=== PATIENT | female | born 1950 | race Caucasian/White ===

== ENCOUNTER → 2017-11-20 | Outpatient (CLI) | payer MEDICARE, OTHER | END | disposition home or self-care (01) | LOC: CFH 10:54 | PROVIDERS: ATTEND Emergency Medicine | DX: Z12.2 Encounter for screening for malignant neoplasm of respiratory organs (principal); R91.1 Solitary pulmonary nodule; Z71.6 Tobacco abuse counseling; Z72.0 Tobacco use | CPT/HCPCS: G0297 ==

== ENCOUNTER → 2017-11-28 | Outpatient (CLI) | payer MEDICARE, OTHER | END | disposition home or self-care (01) | LOC: CFH 09:09 | PROVIDERS: ATTEND Emergency Medicine | DX: I35.8 Other nonrheumatic aortic valve disorders (principal); E11.9 Type 2 diabetes mellitus without complications; F17.210 Nicotine dependence, cigarettes, uncomplicated | CPT/HCPCS: 93306 ==

== ENCOUNTER 2018-10-15 08:30 | Inpatient (IN) | payer MEDICARE ==
[2018-10-13 15:51] LABS: ALBUMIN 3.7 g/dL (3.4-5.0); ANION GAP 10 mmol/L (5-15); CALCIUM 9.3 mg/dL (8.5-10.1); CHLORIDE 92 mmol/L (98-107)
[2018-10-13 15:55] LABS: ALANINE AMINOTRANSFERASE 20 U/L (12-78); ALKALINE PHOSPHATASE 121 U/L (45-117); BILIRUBIN,TOTAL 0.6 mg/dL (0.2-1.0); CREATININE 0.55 mg/dL (0.55-1.02); TOTAL PROTEIN 7.3 g/dL (6.4-8.2)
[~2018-10-15] VITALS: Ht 162.6 cm; Wt 73.1 kg
[2018-10-15 06:48] VITALS: BP 119/74
[~2018-10-15 08:30] MED LIST: ACETAMINOPHEN 500 MG TABLET PO ONE; ATOR40TA78 PO; BUPIVACAINE/PF-EPI 0.5% 1:200K ONE; CEFAZOLIN 1,000 MG ONE; DEXAMETHASONE 4 MG/ML, 1ML ONE; FENTANYL PF 100 MCG/2ML IV PRN; FENTANYL PF 250 MCG/5ML ONE; GABAPENTIN 300 MG CAPSULE PO ONE; GLYCOPYRROLATE 0.2MG/1ML, 5ML ONE; HYDR-3237 PO; HYDROmorphone 2 MG/ML, 1ML IVPush PRN; LABETALOL 5MG/ML, 20ML IV PRN; LACTATED RINGERS 1,000 ML IV SCH; LISI2.5T PO; MEPERIDINE/PF 25MG/0.5ML IVPush PRN; METF1000 PO; MIDAZOLAM 1 MG/ML, 2ML ONE; MORPHINE SULFATE 4 MG/ML, 1ML IVPush PRN; NEOSTIGMINE 1 MG/ML, 10ML ONE; ONDANSETRON 2MG/ML, 2ML IV PRN; ONDANSETRON 2MG/ML, 2ML ONE; ONDANSETRON ODT 8 MG PO PRN; OXYcodone 5 MG/5 ML ORAL.SOL UDC PO PRN; PROMETHAZINE 12.5 MG SUPP PR PRN; PROMETHAZINE 25 MG SUPP PR PRN; PROMETHAZINE 25 MG/ML, 1ML IM PRN; PROMETHAZINE 25 MG/ML, 1ML IV PRN; PROPOFOL 10 MG/ML, 20ML ONE; ROCURONIUM 10MG/ML,5ML ONE; hydrALAzine 20 MG/ML, 1ML IV PRN
[2018-10-15] MEDS: SODIUM CHLORIDE 0.9% 1,000 ML IV SCH (10:59)
[2018-10-15] MEDS: INSULIN LISPRO 100 UNITS/ML, PEN SQ-INSULIN SCH ×3 (11:00→20:29)
[2018-10-15] MEDS ORDERED: LABETALOL 5 MG/ML SYRINGE IVPush PRN (11:00)
[2018-10-15] MEDS ORDERED: CYCLOBENZAPRINE 10 MG TABLET PO PRN (11:00)
[2018-10-15] MEDS ORDERED: ENOXAPARIN 40 MG/0.4 ML SQ SCH (11:00)
[2018-10-15] MEDS ORDERED: hydrALAzine 20 MG/ML, 1ML IVPush PRN (11:00)
[2018-10-15] MEDS ORDERED: ONDANSETRON ODT 4 MG PO PRN (11:00)
[2018-10-15] MEDS ORDERED: ONDANSETRON 2MG/ML, 2ML IVPush PRN (11:00)
[2018-10-15] MEDS ORDERED: ACETAMINOPHEN 325 MG TABLET PO PRN (11:00)
[2018-10-15] MEDS: NICOTINE 7 MG/24 HR PATCH.TD24 TD SCH (11:10)
[2018-10-15] MEDS: HYDROcodone/APAP 5/325 TABLET PO PRN ×2 (11:18→19:46)
[2018-10-15 12:10] LABS: BASOPHILS # (AUTO) 0.03 x10^3/uL (0-0.1); BASOPHILS % (AUTO) 0 % (0-1); EOSINOPHILS # (AUTO) 0.04 x10^3/uL (0-0.4); EOSINOPHILS % (AUTO) 1 % (1-7); LYMPHOCYTES # (AUTO) 1.55 x10^3/uL (1-3.4); LYMPHOCYTES % (AUTO) 21 % (22-44); MD NO; MEAN CORPUSCULAR HEMOGLOBIN 34.6 pg (27.0-34.8); MEAN CORPUSCULAR HGB CONC 33.7 g/dL (32.4-35.8); MEAN CORPUSCULAR VOLUME 102.7 fL (80-100); MEAN PLATELET VOLUME 6.1 fL (7.4-10.4); MONOCYTES # (AUTO) 0.93 x10^3/uL (0.2-0.8); MONOCYTES % (AUTO) 13 % (2-9); NEUTROPHILS % (AUTO) 65 % (42-75); PLATELET COUNT 386 x10^3/uL (130-400); RED CELL DISTRIBUTION WIDTH 14.6 % (9.6-15.2)
[2018-10-15 12:23] LABS: ANION GAP 4 mmol/L (5-15); CALCIUM 9.4 mg/dL (8.5-10.1); CHLORIDE 98 mmol/L (98-107); CREATININE 0.47 mg/dL (0.55-1.02)
[2018-10-15 12:46] LABS: HEMOGLOBIN A1C 5.4 % (4.2-6.3)
[2018-10-15 13:44] VITALS: BP 135/75
[2018-10-15 18:03] LABS: CHLORIDE,URINE RANDOM 33 mmol/L; POTASSIUM,URINE RANDOM 20 mmol/L; SODIUM,URINE RANDOM 32 mmol/L
[2018-10-15 19:25] LABS: OSMOLALITY,URINE 188 mOsm/kg (500-850)
[2018-10-15 20:13] VITALS: BP 152/88
[2018-10-15] MEDS ORDERED: ATORVASTATIN 40 MG TABLET PO SCH (21:00)
[2018-10-15] MEDS ORDERED: LISINOPRIL 5 MG TABLET PO SCH (21:00)
[2018-10-15 21:23] LABS: ANION GAP 8 mmol/L (5-15); CALCIUM 8.8 mg/dL (8.5-10.1); CHLORIDE 99 mmol/L (98-107); CREATININE 0.45 mg/dL (0.55-1.02)
[2018-10-16] MEDS: SODIUM CHLORIDE 0.9% 1,000 ML IV SCH (00:04)
[2018-10-16 00:20] VITALS: BP 109/71
[2018-10-16] MEDS: HYDROcodone/APAP 5/325 TABLET PO PRN (04:10)
[2018-10-16 05:00] VITALS: BP 121/51
[2018-10-16 06:13] LABS: BASOPHILS # (AUTO) 0.08 x10^3/uL (0-0.1); BASOPHILS % (AUTO) 2 % (0-1); EOSINOPHILS # (AUTO) 0.05 x10^3/uL (0-0.4); EOSINOPHILS % (AUTO) 1 % (1-7); LYMPHOCYTES # (AUTO) 1.04 x10^3/uL (1-3.4); LYMPHOCYTES % (AUTO) 20 % (22-44); MD NO; MEAN CORPUSCULAR HEMOGLOBIN 34.5 pg (27.0-34.8); MEAN CORPUSCULAR HGB CONC 33.2 g/dL (32.4-35.8); MEAN CORPUSCULAR VOLUME 104.1 fL (80-100); MEAN PLATELET VOLUME 5.9 fL (7.4-10.4); MONOCYTES # (AUTO) 0.69 x10^3/uL (0.2-0.8); MONOCYTES % (AUTO) 13 % (2-9); NEUTROPHILS # (AUTO) 3.43 x10^3/uL (1.8-6.8); NEUTROPHILS % (AUTO) 65 % (42-75); PLATELET COUNT 335 x10^3/uL (130-400); RED BLOOD COUNT 3.74 x10^6/uL (3.82-5.3); RED CELL DISTRIBUTION WIDTH 14.6 % (9.6-15.2)
[2018-10-16 06:32] LABS: ANION GAP 5 mmol/L (5-15); CALCIUM 8.5 mg/dL (8.5-10.1); CHLORIDE 106 mmol/L (98-107)
[2018-10-16 06:37] LABS: ALANINE AMINOTRANSFERASE 18 U/L (12-78); ALKALINE PHOSPHATASE 89 U/L (45-117); BILIRUBIN,TOTAL 0.5 mg/dL (0.2-1.0); CREATININE 0.46 mg/dL (0.55-1.02); TOTAL PROTEIN 6.1 g/dL (6.4-8.2)
[2018-10-16] MEDS: INSULIN LISPRO 100 UNITS/ML, PEN SQ-INSULIN SCH ×3 (07:00→15:56)
[2018-10-16 08:18] VITALS: BP 114/64
[2018-10-16] MEDS: HEPARIN 5,000 UNITS/ML, 1ML SQ SCH ×2 (08:26→15:56)
[2018-10-16] MEDS ORDERED: LISINOPRIL 5 MG TABLET PO SCH (09:00)
[2018-10-16] MEDS ORDERED: BUPIVACAINE/PF-EPI 0.5% 1:200K ONE (10:02)
[2018-10-16] MEDS ORDERED: FENTANYL PF 100 MCG/2ML ONE ×2 (10:12→11:49)
[2018-10-16] MEDS ORDERED: MIDAZOLAM 1 MG/ML, 2ML ONE (10:13)
[2018-10-16] MEDS ORDERED: ALBUTEROL SULFATE 2.5 MG/3 ML NPPB PRN (11:00)
[2018-10-16] MEDS ORDERED: OXYcodone 5 MG/5 ML ORAL.SOL UDC PO PRN (11:00)
[2018-10-16] MEDS ORDERED: HYDROmorphone 2 MG/ML, 1ML IVPush PRN (11:00)
[2018-10-16] MEDS ORDERED: DIAZEPAM 5 MG/ML, 2ML IVPush PRN (11:00)
[2018-10-16] MEDS ORDERED: ACETAMINOPHEN 325 MG TABLET PO PRN (11:00)
[2018-10-16] MEDS ORDERED: PROMETHAZINE 25 MG/ML, 1ML IV PRN (11:00)
[2018-10-16] MEDS ORDERED: MEPERIDINE/PF 25MG/0.5ML IVPush PRN (11:00)
[2018-10-16] MEDS ORDERED: KETOROLAC 30 MG/1 ML IV PRN (11:00)
[2018-10-16] MEDS ORDERED: LABETALOL 5MG/ML, 20ML IV PRN (11:00)
[2018-10-16] MEDS ORDERED: FENTANYL PF 100 MCG/2ML IV PRN (11:00)
[2018-10-16] MEDS ORDERED: hydrALAzine 20 MG/ML, 1ML IV PRN (11:00)
[2018-10-16 13:19] VITALS: BP 137/83
[2018-10-16] MEDS: NICOTINE 7 MG/24 HR PATCH.TD24 TD SCH (13:45)
[2018-10-16] MEDS ORDERED: CEFAZOLIN PMX 2GM/50ML 50 ML IVPB SCH (16:00)
[2018-10-16 18:08] VITALS: BP 156/82
== END 2018-10-16 18:55 | disposition home or self-care (01) | DRG 493 ==
LOC: OR 08:30 → 4NOR 08:33
PROVIDERS: ADMIT Internal Medicine; ATTEND Internal Medicine
PROC: 3E0T3BZ Introduction of Anesthetic Agent into Peripheral Nerves and Plexi, Percutaneous Approach (ICD-10-PCS; 2018-10-16)
PROC: 0PSD04Z Reposition Left Humeral Head with Internal Fixation Device, Open Approach (ICD-10-PCS; principal; 2018-10-16 11:00)
DX: S42.253A Displaced fracture of greater tuberosity of unspecified humerus, initial encounter for closed fracture (principal); E87.1 Hypo-osmolality and hyponatremia; E11.9 Type 2 diabetes mellitus without complications; E78.5 Hyperlipidemia, unspecified; I10 Essential (primary) hypertension; W18.39XA Other fall on same level, initial encounter; Z53.9 Procedure and treatment not carried out, unspecified reason; Z87.891 Personal history of nicotine dependence; Y93.89 Activity, other specified; Y92.89 Other specified places as the place of occurrence of the external cause; Y99.8 Other external cause status
CPT/HCPCS: 36415; 76000; 80047; 80048; 80053; 82436; 82533; 82962; 83036; 83930; 83935; 84133; 84300; 84443; 85025; 93005; C1713; G0378; J0690; J1100; J1644; J1650; J2250; J2405; J2704; J2710; J3010; J1815; J7030; J7120

== ENCOUNTER 2018-10-20 06:54 | Emergency (ER) | payer MEDICARE ==
[~2018-10-20] VITALS: Ht 170.2 cm; Wt 76.3 kg
[~2018-10-20 06:54] MED LIST changes: -ACETAMINOPHEN 500 MG TABLET PO ONE; -BUPIVACAINE/PF-EPI 0.5% 1:200K ONE; -CEFAZOLIN 1,000 MG ONE; -DEXAMETHASONE 4 MG/ML, 1ML ONE; -FENTANYL PF 100 MCG/2ML IV PRN; -FENTANYL PF 250 MCG/5ML ONE; -GABAPENTIN 300 MG CAPSULE PO ONE; -GLYCOPYRROLATE 0.2MG/1ML, 5ML ONE; -HYDROmorphone 2 MG/ML, 1ML IVPush PRN; -LABETALOL 5MG/ML, 20ML IV PRN; -LACTATED RINGERS 1,000 ML IV SCH; -MEPERIDINE/PF 25MG/0.5ML IVPush PRN; -MIDAZOLAM 1 MG/ML, 2ML ONE; -MORPHINE SULFATE 4 MG/ML, 1ML IVPush PRN; -NEOSTIGMINE 1 MG/ML, 10ML ONE; -ONDANSETRON 2MG/ML, 2ML IV PRN; -ONDANSETRON 2MG/ML, 2ML ONE; -ONDANSETRON ODT 8 MG PO PRN; -OXYcodone 5 MG/5 ML ORAL.SOL UDC PO PRN; -PROMETHAZINE 12.5 MG SUPP PR PRN; -PROMETHAZINE 25 MG SUPP PR PRN; -PROMETHAZINE 25 MG/ML, 1ML IM PRN; -PROMETHAZINE 25 MG/ML, 1ML IV PRN; -PROPOFOL 10 MG/ML, 20ML ONE; -ROCURONIUM 10MG/ML,5ML ONE; -hydrALAzine 20 MG/ML, 1ML IV PRN
[2018-10-20 06:57] VITALS: BP 113/76
--- NOTE | 2018-10-20 07:25 | NUR ---
LATE NOTE ENTRY FOR 704: Pt ambulates to room from triage with steady gait and ambulance. Pt presents to ED with c/o left hand swelling after having "arm surgery on ." Pt resting on gurney with call light within reach. NADN. Pt denies cp, sob, n/v/d. CMS intact. Bed rail up for safety measures.
--- NOTE | 2018-10-20 08:53 | NUR ---
raoul Maher - delay in starting knee x-rays due to ultrasound and patient in rest room.
--- NOTE | 2018-10-20 09:48 | NUR ---
Patient given discharge instructions and they have confirmed that they understand the instructions. Patient ambulatory with steady gait. Pt refusing for vital signs to be checked on discharge. NADN. Pt left with all personal belongings and d/c paperwork.
== END 2018-10-20 09:52 | disposition home or self-care (01) ==
LOC: ED 09:47
DX: S60.222A Contusion of left hand, initial encounter (principal); M70.41 Prepatellar bursitis, right knee; M96.830 Postprocedural hemorrhage of a musculoskeletal structure following a musculoskeletal system procedure; E78.00 Pure hypercholesterolemia, unspecified; Y93.89 Activity, other specified; X58.XXXA Exposure to other specified factors, initial encounter; Y92.009 Unspecified place in unspecified non-institutional (private) residence as the place of occurrence of the external cause; Y99.8 Other external cause status
CPT/HCPCS: 99284

== ENCOUNTER 2018-11-02 19:41 | Emergency (ER) | payer MEDICARE ==
[~2018-11-02] VITALS: Ht 162.6 cm; Wt 76.7 kg
[2018-11-02 19:59] VITALS: BP 114/71
[2018-11-02] MEDS ORDERED: PROPARACAINE OPHTH 0.5%, 15ML EACHEYE ONE (20:00)
[2018-11-02] MEDS ORDERED: FLUORESCEIN/BENOXINATE 5 ML DROPS OP ONE (20:00)
[2018-11-02] MEDS ORDERED: FLUORESCEIN OPHTHALMIC 1 MG STRIP ONE (20:26)
[2018-11-02] MEDS ORDERED: PROPARACAINE OPHTH 0.5%, 15ML ONE (20:26)
== END 2018-11-02 20:47 | disposition home or self-care (01) ==
LOC: ED 20:30
DX: S05.02XA Injury of conjunctiva and corneal abrasion without foreign body, left eye, initial encounter (principal); H57.12 Ocular pain, left eye; E11.9 Type 2 diabetes mellitus without complications; I10 Essential (primary) hypertension; X58.XXXA Exposure to other specified factors, initial encounter; Y93.89 Activity, other specified; Y92.89 Other specified places as the place of occurrence of the external cause; Y99.8 Other external cause status
CPT/HCPCS: 99283

== ENCOUNTER 2019-07-06 11:35 | Emergency (ER) | payer MEDICARE ==
[~2019-07-06] VITALS: Ht 162.6 cm; Wt 79.2 kg
[2019-07-06 11:46] VITALS: BP 116/67
[2019-07-06 13:25] LABS: ALANINE AMINOTRANSFERASE 123 U/L (12-78); ALBUMIN 3.6 g/dL (3.4-5.0); ALKALINE PHOSPHATASE 147 U/L (45-117); ANION GAP 16 mmol/L (5-15); BILIRUBIN,TOTAL 1.7 mg/dL (0.2-1.0); CALCIUM 9.6 mg/dL (8.5-10.1); CHLORIDE 93 mmol/L (98-107); CREATININE 0.77 mg/dL (0.55-1.02); TOTAL PROTEIN 7.4 g/dL (6.4-8.2)
[2019-07-06 13:48] LABS: MEAN CORPUSCULAR HGB CONC 35.4 g/dL (32.4-35.8); MEAN CORPUSCULAR VOLUME 107.4 fL (80-100); MEAN PLATELET VOLUME 8.1 fL (7.4-10.4); PLATELET COUNT 76 x10^3/uL (130-400); RED BLOOD COUNT 4.02 x10^6/uL (3.82-5.3)
[2019-07-06 13:51] LABS: MD YES
[2019-07-06 13:54] LABS: BAND#(MANUAL) 0.26 x10^3/uL; BANDS%(MANUAL) 6 % (0-7); BASOS#(MANUAL) 0.04 x10^3/uL (0-0.1); BASOS% (MANUAL) 1 % (0-1); EOS#(MANUAL) 0.04 x10^3/uL (0.0-0.4); EOS% (MANUAL) 1 % (1-7)
[2019-07-06 13:56] LABS: LYMPH#(MANUAL) 0.56 x10^3/uL (1-3.4); LYMPHS% (MANUAL) 13 % (22-44); MONOS#(MANUAL) 0.77 x10^3/uL (0.3-2.7); MONOS% (MANUAL) 18 % (2-9); SEG#(MANUAL) 2.62 x10^3/uL (1.8-6.8); SEGS% (MANUAL) 61 % (42-75)
[2019-07-06 13:58] LABS: <PLATELET ESTIMATE> DECREASED; <PLT MORPHOLOGY> NORMAL PLT MORPH
--- NOTE | 2019-07-06 14:00 | NUR ---
NO ANSWER IN LOBBY
== END 2019-07-06 14:09 | disposition left against medical advice (07) ==
LOC: ED 14:00
DX: M79.89 Other specified soft tissue disorders (principal); E11.9 Type 2 diabetes mellitus without complications
CPT/HCPCS: 36415; 80053; 83880; 85025; 99283

== ENCOUNTER 2019-07-07 14:13 | Emergency (ER) | payer MEDICARE ==
[~2019-07-07] VITALS: Ht 162.6 cm; Wt 75.0 kg
[2019-07-07 14:18] VITALS: BP 110/70
--- NOTE | 2019-07-07 14:57 | NUR ---
BENJIE IN ROOM FOR EVAL. EKG OBTAINED, PT REFUSED LAB WORK. NSR ON MONITOR. CTM.
== END 2019-07-07 15:43 | disposition home or self-care (01) ==
LOC: ED 15:31
DX: R60.9 Edema, unspecified (principal); R05 Cough; I10 Essential (primary) hypertension; E11.9 Type 2 diabetes mellitus without complications; F17.200 Nicotine dependence, unspecified, uncomplicated
CPT/HCPCS: 99283

== ENCOUNTER 2020-04-23 06:21 | Emergency (ER) | payer MEDICARE, MEDICAID ==
[~2020-04-23] VITALS: Ht 162.6 cm; Wt 68.5 kg
[2020-04-23] MEDS ORDERED: ASPIRIN 81 MG TABLET CHEW ONE (06:49)
--- NOTE | 2020-04-23 06:52 | NUR ---
PT STATES "THE WOMAN ON THE PHONE THIS MORNING TOLD ME TO TAKE 4 OF MY BABY ASPIRINS." ASA HELD HERE.
[2020-04-23] MEDS ORDERED: ASPIRIN 81 MG TABLET CHEW PO ONE (07:00)
[2020-04-23 07:13] LABS: BASOPHILS % (AUTO) 1 % (0-1); EOSINOPHILS % (AUTO) 0 % (1-7); LYMPHOCYTES % (AUTO) 12 % (22-44); MEAN CORPUSCULAR HEMOGLOBIN 33.9 pg (27.0-34.8); MEAN CORPUSCULAR HGB CONC 35.2 g/dL (32.4-35.8); MEAN PLATELET VOLUME 6.8 fL (7.4-10.4); MONOCYTES % (AUTO) 12 % (2-9); NEUTROPHILS % (AUTO) 75 % (42-75); PLATELET COUNT 342 x10^3/uL (130-400); RED BLOOD COUNT 4.62 x10^6/uL (3.82-5.3); RED CELL DISTRIBUTION WIDTH 13.7 % (9.6-15.2)
[2020-04-23 07:22] LABS: ALANINE AMINOTRANSFERASE 18 U/L (12-78); ANION GAP 5 mmol/L (5-15); CHLORIDE 97 mmol/L (98-107); CREATININE 0.59 mg/dL (0.55-1.02)
[2020-04-23 07:27] LABS: ALKALINE PHOSPHATASE 133 U/L (45-117); TOTAL PROTEIN 7.7 g/dL (6.4-8.2); TROPONIN I < 0.015 ng/mL (0.000-0.045)
[2020-04-23 07:28] LABS: MD NO
[2020-04-23 08:19] LABS: D-DIMER 0.77 ug/mlFEU (0.00-0.52); INTERNATIONAL NORMALIZED RATIO 1.07 (0.93-1.1); PROTHROMBIN TIME 11.3 Seconds (9.6-11.5)
[2020-04-23] MEDS ORDERED: OMNIPAQUE 350 MG/ML, 75ML BOTTLE ONE (08:22)
[2020-04-23] MEDS ORDERED: SODIUM CHLORIDE 0.9%, 500ML IVBOLUS ONE ×2 (08:30→09:30)
[2020-04-23] MEDS ORDERED: KETOROLAC 30 MG/1 ML ONE (09:08)
[2020-04-23] MEDS ORDERED: KETOROLAC 30 MG/1 ML IVPush ONE (09:30)
[2020-04-23 09:53] VITALS: BP 112/71
[2020-04-26] MEDS ORDERED: METF500T17 PO (11:47)
[2020-04-26] MEDS ORDERED: ATOR10TA9 PO (11:47)
[2020-04-26] MEDS ORDERED: LISI5TAB7 PO (11:47)
[2020-04-26] MEDS ORDERED: ATOR40TA PO (12:13)
[2020-04-26] MEDS ORDERED: LISI2.5T PO (12:13)
[2020-04-26] MEDS ORDERED: ASPI81TA45 PO (12:13)
== END 2020-04-23 10:33 | disposition home or self-care (01) ==
LOC: ED 08:48
DX: R07.89 Other chest pain (principal); R22.2 Localized swelling, mass and lump, trunk; R00.0 Tachycardia, unspecified; I10 Essential (primary) hypertension; E11.9 Type 2 diabetes mellitus without complications; E78.00 Pure hypercholesterolemia, unspecified; F17.290 Nicotine dependence, other tobacco product, uncomplicated
CPT/HCPCS: 36415; 71045; 71275; 80053; 84484; 85025; 85379; 85610; 85730; 93005; 96374; 99285; 99406; J1885; J7040; Q9967; 96361

== ENCOUNTER → 2020-05-11 | Outpatient (CLI) | payer MEDICARE, MEDICAID ==
[~2020-05-11] MED LIST changes: +ASPI81TA45 PO; +ATOR10TA9 PO; +ATOR40TA PO; +GADOTERATE 10 MMOL/20 ML VIAL ONE; +LISI5TAB7 PO; +METF500T17 PO
== END | disposition home or self-care (01) ==
LOC: RAD 12:14
PROVIDERS: ATTEND Internal Medicine
DX: C34.12 Malignant neoplasm of upper lobe, left bronchus or lung (principal); G31.9 Degenerative disease of nervous system, unspecified; R22.0 Localized swelling, mass and lump, head
CPT/HCPCS: 70553; A9575

== ENCOUNTER 2020-06-29 14:38 | Inpatient (IN) | payer MEDICARE, MEDICAID ==
[~2020-06-29] VITALS: Ht 162.6 cm; Wt 73.1 kg
[~2020-06-29 14:38] MED LIST changes: +DEXA4TAB66 PO; +ENOX40SY4 SQ; +FOLI1TAB32 PO; -GADOTERATE 10 MMOL/20 ML VIAL ONE; +LIDO700A20 TD
[2020-06-29] MEDS ORDERED: HYDROcodone/APAP 5/325 TABLET PO PRN (15:00)
[2020-06-29] MEDS ORDERED: HYDROcodone/APAP 5/325 TABLET ONE (15:10)
--- NOTE | 2020-06-29 16:02 | NUR ---
PT VERY CONFUSED, REQUIRES FREQ DIRECTION (PT OFTEN STATES "I DON'T KNOW WHAT TO DO NOW."), PT 2-PERSON ASSIST TRANSFER TO FOR BR, MOANING LOUDLY WHILE SHUFFLING DURING AMBULATION/TRANSFER; PT BACK TO [facility] & MORE COMFORTABLE AT REST, COMFORT MEASURES PROVIDED, CALL LIGHT WITHIN REACH.
--- NOTE | 2020-06-29 16:25 | NUR ---
RITO (BREONNA) TO SEE PT FOR POSSIBLE PLACEMENT.
--- NOTE | 2020-06-29 17:04 | NUR ---
PT RESTING ON GURNEY WITH EYES CLOSED, NAD, NO NEEDS AT THIS TIME, CALL LIGHT WITHIN REACH.
[2020-06-29 17:13] LABS: MEAN CORPUSCULAR HEMOGLOBIN 33.4 pg (27.0-34.8); MEAN CORPUSCULAR HGB CONC 34.5 g/dL (32.4-35.8); MEAN PLATELET VOLUME 7.3 fL (7.4-10.4); PLATELET COUNT 218 x10^3/uL (130-400); RED BLOOD COUNT 4.45 x10^6/uL (3.82-5.3); RED CELL DISTRIBUTION WIDTH 14.2 % (9.6-15.2)
[2020-06-29 17:27] LABS: ALANINE AMINOTRANSFERASE 63 U/L (12-78); ALBUMIN 3.3 g/dL (3.4-5.0); ANION GAP 12 mmol/L (5-15); CALCIUM 9.1 mg/dL (8.5-10.1); CHLORIDE 94 mmol/L (98-107); CREATININE 0.56 mg/dL (0.55-1.02)
[2020-06-29 17:29] LABS: ALKALINE PHOSPHATASE 173 U/L (45-117); TOTAL PROTEIN 7.2 g/dL (6.4-8.2)
[2020-06-29 17:34] LABS: MD YES
[2020-06-29 17:37] LABS: EOS#(MANUAL) 0.15 x10^3/uL (0.0-0.4); EOS% (MANUAL) 2 % (1-7); LYMPH#(MANUAL) 1.75 x10^3/uL (1-3.4); LYMPHS% (MANUAL) 24 % (22-44); MONOS#(MANUAL) 1.75 x10^3/uL (0.3-2.7); MONOS% (MANUAL) 24 % (2-9); SEG#(MANUAL) 3.65 x10^3/uL (1.8-6.8); SEGS% (MANUAL) 50 % (42-75)
[2020-06-29 17:38] LABS: <PLATELET ESTIMATE> ADEQUATE
[2020-06-29 17:39] LABS: <PLT MORPHOLOGY> NORMAL PLT MORPH; <RBC MORPHOLOGY> NORMAL
--- NOTE | 2020-06-29 18:01 | NUR ---
PT CONTINUES SLEEPING ON GURNEY, NAD, NO NEEDS AT THIS TIME, CALL LIGHT WITHIN REACH.
--- NOTE | 2020-06-29 18:10 | NUR ---
Pt to be admitted to onc, room 434. Report called to
[2020-06-29] MEDS ORDERED: LIDODERM 5% PATCH TD PRN (18:30)
[2020-06-29] MEDS ORDERED: POLYETHYLENE GLYCOL 17 GM PACKET PO PRN (19:00)
[2020-06-29] MEDS ORDERED: ACETAMINOPHEN 325 MG TABLET PO PRN (19:00)
[2020-06-29] MEDS ORDERED: BISACODYL 10 MG SUPP PR PRN (19:00)
[2020-06-29] MEDS ORDERED: ENOXAPARIN 40 MG/0.4 ML SQ SCH (19:00)
[2020-06-29] MEDS ORDERED: LISINOPRIL 10 MG TABLET PO ONE (19:00)
[2020-06-29] MEDS ORDERED: ONDANSETRON 2MG/ML, 2ML IVPush PRN (19:00)
[2020-06-29] MEDS ORDERED: LABETALOL 5MG/ML, 20ML IVPush PRN (19:00)
[2020-06-29 19:44] VITALS: BP 161/91
[2020-06-29] MEDS: HYDROcodone/APAP 5/325 TABLET PO PRN (20:01)
[2020-06-29] MEDS: MELATONIN 5 MG TABLET PO PRN (20:01)
[2020-06-29] MEDS ORDERED: POTASSIUM CHLORIDE 20 MEQ TAB.ER.PRT PO ONE (20:30)
[2020-06-29] MEDS ORDERED: MAGNESIUM SULFATE PMX 4GM/100M 100 ML IVPB ONE (20:30)
[2020-06-29] MEDS ORDERED: DEXAMETHASONE 4 MG TABLET PO ONE (21:00)
[2020-06-30 01:37] VITALS: BP 167/94
[2020-06-30 05:17] LABS: MICROSCOPIC NOT IND
[2020-06-30 05:52] LABS: BASOPHILS % (AUTO) 0 % (0-1); EOSINOPHILS % (AUTO) 0 % (1-7); LYMPHOCYTES % (AUTO) 14 % (22-44); MEAN CORPUSCULAR HEMOGLOBIN 35.8 pg (27.0-34.8); MEAN PLATELET VOLUME 7.8 fL (7.4-10.4); MONOCYTES % (AUTO) 23 % (2-9); NEUTROPHILS % (AUTO) 63 % (42-75); PLATELET COUNT 230 x10^3/uL (130-400)
[2020-06-30 05:53] LABS: MD NO
[2020-06-30] MEDS: HYDROcodone/APAP 5/325 TABLET PO PRN ×3 (05:53→20:37)
[2020-06-30] MEDS: DEXAMETHASONE 4 MG TABLET PO SCH ×2 (05:53→17:21)
[2020-06-30 06:00] LABS: ANION GAP 9 mmol/L (5-15); CALCIUM 8.6 mg/dL (8.5-10.1); CHLORIDE 94 mmol/L (98-107); CREATININE 0.52 mg/dL (0.55-1.02)
[2020-06-30 07:38] VITALS: BP 134/80
[2020-06-30] MEDS: LISINOPRIL 5 MG TABLET PO SCH (09:25)
[2020-06-30] MEDS: THIAMINE 100MG TABLET PO SCH (09:25)
[2020-06-30] MEDS: SENNA/DOCUSATE TABLET PO SCH (09:26)
[2020-06-30] MEDS: ATORVASTATIN 40 MG TABLET PO SCH (09:26)
[2020-06-30] MEDS: FOLIC ACID 1 MG TABLET PO SCH (09:26)
[2020-06-30] MEDS: LEVETIRACETAM 500 MG TABLET PO SCH ×2 (09:26→20:32)
[2020-06-30] MEDS: metFORMIN 500 MG TABLET PO SCH (09:26)
[2020-06-30 12:52] VITALS: BP 128/80
[2020-06-30] MEDS: MELATONIN 5 MG TABLET PO PRN (20:32)
[2020-06-30] MEDS: NICOTINE 14MG/24 HR PATCH.TD24 TD SCH (20:33)
[2020-07-01] MEDS ORDERED: ONDANSETRON 4 MG TABLET ONE (02:01)
[2020-07-01] MEDS: DEXAMETHASONE 4 MG TABLET PO SCH ×2 (07:48→17:02)
[2020-07-01] MEDS: metFORMIN 500 MG TABLET PO SCH (07:48)
[2020-07-01] MEDS: LEVETIRACETAM 500 MG TABLET PO SCH ×2 (07:48→22:24)
[2020-07-01] MEDS: FOLIC ACID 1 MG TABLET PO SCH (07:48)
[2020-07-01] MEDS: LISINOPRIL 5 MG TABLET PO SCH (07:49)
[2020-07-01] MEDS: HYDROcodone/APAP 5/325 TABLET PO PRN ×3 (07:49→22:24)
[2020-07-01] MEDS: THIAMINE 100MG TABLET PO SCH (07:49)
[2020-07-01] MEDS: SENNA/DOCUSATE TABLET PO SCH (07:49)
[2020-07-01] MEDS: IBUPROFEN 600 MG TABLET PO PRN ×2 (07:52→17:02)
[2020-07-01] MEDS: ATORVASTATIN 40 MG TABLET PO SCH (07:52)
[2020-07-01 12:54] VITALS: BP 103/68
[2020-07-01] MEDS ORDERED: HYDR2TAB29 PO ×2 (14:30)
[2020-07-01] MEDS: MELATONIN 5 MG TABLET PO PRN (22:24)
[2020-07-01] MEDS: NICOTINE 14MG/24 HR PATCH.TD24 TD SCH (22:24)
[2020-07-02 07:33] VITALS: BP 137/78
[2020-07-02] MEDS: DEXAMETHASONE 4 MG TABLET PO SCH ×2 (08:54→17:07)
[2020-07-02] MEDS: FOLIC ACID 1 MG TABLET PO SCH (08:55)
[2020-07-02] MEDS: metFORMIN 500 MG TABLET PO SCH (08:55)
[2020-07-02] MEDS: LEVETIRACETAM 500 MG TABLET PO SCH ×2 (08:55→22:20)
[2020-07-02] MEDS: ATORVASTATIN 40 MG TABLET PO SCH (08:56)
[2020-07-02] MEDS: SENNA/DOCUSATE TABLET PO SCH (08:57)
[2020-07-02] MEDS: THIAMINE 100MG TABLET PO SCH (08:57)
[2020-07-02] MEDS: LISINOPRIL 5 MG TABLET PO SCH (08:57)
[2020-07-02] MEDS: HYDROcodone/APAP 5/325 TABLET PO PRN ×3 (09:10→22:29)
[2020-07-02 12:39] VITALS: BP 130/77
[2020-07-02 18:29] VITALS: BP 124/81
[2020-07-02] MEDS: NICOTINE 14MG/24 HR PATCH.TD24 TD SCH (22:20)
[2020-07-03 03:44] VITALS: BP 146/87
[2020-07-03] MEDS: HYDROcodone/APAP 5/325 TABLET PO PRN (05:55)
[2020-07-03 07:05] VITALS: BP 118/72
[2020-07-03] MEDS: DEXAMETHASONE 4 MG TABLET PO SCH (08:38)
[2020-07-03] MEDS: SENNA/DOCUSATE TABLET PO SCH (08:39)
[2020-07-03] MEDS: LISINOPRIL 5 MG TABLET PO SCH (08:39)
[2020-07-03] MEDS: metFORMIN 500 MG TABLET PO SCH (08:39)
[2020-07-03] MEDS: FOLIC ACID 1 MG TABLET PO SCH (08:39)
[2020-07-03] MEDS: ATORVASTATIN 40 MG TABLET PO SCH (08:39)
[2020-07-03] MEDS: THIAMINE 100MG TABLET PO SCH (08:39)
[2020-07-03] MEDS: LEVETIRACETAM 500 MG TABLET PO SCH (08:40)
[2020-07-03 12:53] VITALS: BP 135/80
== END 2020-07-03 15:41 | disposition hospice, home (50) | DRG 54 ==
LOC: ED 16:30 → INTOOBSV 18:33 → EDIP 18:33 → OBSVTOIN 18:33 → 4NW 18:54
PROVIDERS: ADMIT Family Medicine; ATTEND Family Medicine
DX: C79.31 Secondary malignant neoplasm of brain (principal); G04.90 Encephalitis and encephalomyelitis, unspecified; G93.6 Cerebral edema; S52.225A Nondisplaced transverse fracture of shaft of left ulna, initial encounter for closed fracture; E87.1 Hypo-osmolality and hyponatremia; C34.90 Malignant neoplasm of unspecified part of unspecified bronchus or lung; R41.4 Neurologic neglect syndrome; G93.49 Other encephalopathy; Z51.5 Encounter for palliative care; E83.42 Hypomagnesemia; E87.6 Hypokalemia; I10 Essential (primary) hypertension; I25.10 Atherosclerotic heart disease of native coronary artery without angina pectoris; F17.210 Nicotine dependence, cigarettes, uncomplicated; R62.7 Adult failure to thrive; E11.9 Type 2 diabetes mellitus without complications; Z79.4 Long term (current) use of insulin; Z85.118 Personal history of other malignant neoplasm of bronchus and lung; Z79.899 Other long term (current) drug therapy
CPT/HCPCS: 36415; 70450; 71045; 80048; 80053; 80320; 81003; 83735; 83930; 83935; 84100; 84300; 85025; 85379; 93005; 96365; 96372; 99285; G0378; J1650; J2405; G0480; J3475

== ENCOUNTER 2020-06-30 08:00 | Outpatient (CLI) | payer MEDICARE, MEDICAID ==
[2020-07-01] MEDS ORDERED: HYDR2TAB29 PO ×2 (14:30)
== END 2020-06-30 23:59 | disposition home or self-care (01) ==
LOC: ROC 08:00
PROVIDERS: ATTEND Radiology Radiation Oncology
DX: Z02.9 Encounter for administrative examinations, unspecified (principal)